=== PATIENT | female | born 1955 | race Caucasian/White ===

== ENCOUNTER 2016-02-29 11:51 | Emergency (ER) | payer OTHER ==
[~2016-02-29] VITALS: Wt 113.0 kg
[~2016-02-29 11:51] MED LIST: ACET500C5 PO; BUPR300T36 PO; GABA-526 PO; HYDR-762 PO; LANT3I SC; LATA2.5D2 BOTH EYES; LEVO500T72 PO; MED4DP PO; MORP30TA89 PO; NOV SC; NOVO3I SC; SERT-165 PO; TEMA30CA PO; UDROBAC PO; ZOLP5TAB6 PO
[2016-02-29] MEDS ORDERED: HYDROCODONE/APAP (10/325) TAB PO ONE (13:00)
--- NOTE | 2016-02-29 13:41 | RADRPT ---
PROCEDURE: XR Ankle. CLINICAL INDICATION: Right foot and ankle pain, injury TECHNIQUE: 3 views of the right ankle were performed. COMPARISON: Radiographs of the right foot performed same day FINDINGS: There is diffuse soft tissue swelling of the foot and ankle, greatest dorsally. There is some age i ndeterminate bone fragmentation near the second and third tarsometatarsal joints, possibly from a pr evious avulsion injury. The Lisfranc joint is not well assessed. There is also at least moderate o steoarthrosis involving the second and third tarsometatarsal joints. There is also a chronic-appearing defect along the articular surface of the distal aspect of the fir st proximal phalanx from a remote injury. There is also evidence of remote trauma involving the ante rior calcaneus at the calcaneocuboid joint. There is a large plantar calcaneal enthesophyte. Talar dome is normal. There is mild bimalleolar soft tissue swelling. There are vascular calcifications with mild tibiotalar osteoarthrosis. IMPRESSION: 1. Age indeterminate bone fragmentation along the dorsal aspect of the mid foot near the second and third tarsometatarsal joints adjacent to moderate osteoarthrosis at the location. Please note that t he Lisfranc joint is not well assessed due to patient positioning. If clinically indicated consider CT for further evaluation. 2. Dorsal soft tissue swelling throughout the foot and bimalleolar soft tissue swelling at the ankle . 3. Large plantar calcaneal enthesophyte. 4. Evidence of remote trauma at the distal aspect of the first proximal phalanx as well as the ante rior calcaneus. RPTAT: UU .Wei Pena MD, Date Time Electronically viewed and signed by .Wei Pena MD, on 02/29/2016 13:40 .K/
--- NOTE | 2016-02-29 13:41 | RADRPT ---
PROCEDURE: XR foot CLINICAL INDICATION: Right foot and ankle pain, injury TECHNIQUE: 3 views of the right foot were performed. COMPARISON: Radiographs of the right ankle performed same day FINDINGS: There is diffuse soft tissue swelling of the foot and ankle, greatest dorsally. There is some age i ndeterminate bone fragmentation near the second and third tarsometatarsal joints, possibly from a pr evious avulsion injury. The Lisfranc joint is not well assessed. There is also at least moderate o steoarthrosis involving the second and third tarsometatarsal joints. There is also a chronic-appearing defect along the articular surface of the distal aspect of the fir st proximal phalanx from a remote injury. There is also evidence of remote trauma involving the ante rior calcaneus at the calcaneocuboid joint. There is a large plantar calcaneal enthesophyte. Talar dome is normal. There is mild bimalleolar soft tissue swelling. There are vascular calcifications with mild tibiotalar osteoarthrosis. IMPRESSION: 1. Age indeterminate bone fragmentation along the dorsal aspect of the mid foot near the second and third tarsometatarsal joints adjacent to moderate osteoarthrosis at the location. Please note that t he Lisfranc joint is not well assessed due to patient positioning. If clinically indicated consider CT for further evaluation. 2. Dorsal soft tissue swelling throughout the foot and bimalleolar soft tissue swelling at the ankle . 3. Large plantar calcaneal enthesophyte. 4. Evidence of remote trauma at the distal aspect of the first proximal phalanx as well as the ante rior calcaneus. RPTAT: UU .Wei Pena MD, Date Time Electronically viewed and signed by .Wei Pena MD, on 02/29/2016 13:41 .K/
--- NOTE | 2016-02-29 14:50 | RADRPT ---
PROCEDURE: CT of the right foot CLINICAL INDICATION: Right foot pain and swelling for 4 weeks TECHNIQUE: Axial images through the right foot without IV contrast. Coronal and sagittal reforma ts. Images were interpreted at an independent PACS workstation. CTDI 11.08 mGy DLP 17 0.24 mGy-cm One or more of the following dose reduction techniques were used: Automated exposure control Adjustment of the mA and / or kV according to patient size Use of iterative reconstruction technique. COMPARISON: Correlation with radiographs of the right foot and ankle performed same day FINDINGS: There is moderate to severe osteoarthrosis involving the navicular - medial cuneiform articulation (and axial 32) as well as moderate to severe osteoarthrosis involving the second and third tarsometa tarsal joints (axial 34). There is also an ununited fracture along the plantar aspect of the base of the second metatarsal (sagittal 134) which is age indeterminate. There is some additional age inde terminate bone fragmentation at the second tarsometatarsal joint dorsally (sagittal 120) along with slight dorsal subluxation of the base of the second metatarsal. Slight lateral subluxation of the p atient's fracture fragment the base of the second metatarsal is also seen causing slight widening of the Lisfranc interspace. There is also an age indeterminate mild bony irregularity along the anteri or margin of the medial malleolus (axial 21). Milder degenerative changes at the fourth and fifth tarsometatarsal joints are noted with small subc hondral cyst. There is evidence of remote trauma the lateral aspect of the calcaneocuboid joint (ax ial 33) as well as remote trauma at the distal aspect of the fifth proximal phalanx (axial 46). Limited soft tissue assessment demonstrates fairly significant dorsal subcutaneous soft tissue swell ing. There is also mild bimalleolar soft tissue swelling. Limited tendon assessment is grossly unr emarkable. There are vascular calcifications. There is a large plantar calcaneal enthesophyte. IMPRESSION: 1. Age indeterminate nondisplaced fracture along the plantar aspect of the base of the second metata rsal as well as dorsal bone fragmentation at the second tarsometatarsal joint. This is on a backgro und of moderate to severe osteoarthrosis with significant subchondral cystic changes suggesting poss ible superimposed crystal deposition disease. 2. Slight dorsal subluxation of the second metatarsal base as well as borderline lateral subluxatio n suggest a degeneration and / or tearing of the Lisfranc ligament at this location. 3. Age indeterminate bony irregularity along the anterior aspect of the medial malleolus, query tin y avulsion injury. 4. Evidence of remote trauma along the lateral aspect of the calcaneocuboid joint and the distal asp ect of the first proximal phalanx. 5. Significant dorsal and bimalleolar soft tissue swelling. RPTAT: UU .Wei Pena MD, MD Date Time Electronically viewed and signed by .Wei Pena MD, MD on 02/29/2016 14:49 .K/
[2016-02-29] MEDS ORDERED: HYDR-902 PO (15:00)
--- NOTE | 2016-02-29 15:12 | ERD ---
ER Documentation Chief Complaint Date/Time DATE: 02/29/16 TIME: 15:07 Chief Complaint FOOT AND ANKLE PAIN FOR A FEW MONTHS NO RECENT TRAUMA HPI This is a 60-year-old female that presents to the ER with right foot pain for the last 3 weeks. Patient does not recall any recent trauma however she has had severe right foot pain. She has been taking Ida however has not helped. Patient states she got an x-ray done and was told she had some sort of fracture however she has not seen an orthopedic doctor. Patient denies any new numbness or tingling of her feet she does have diabetic neuropathy. ROS 12 point review of systems was done, all negative except per HPI. Medications Home Meds Active Scripts Hydrocodone/Acetaminophen (Ida 10-325 Tablet) 1 Each Tablet, 1 TAB PO Q6H Y for PAIN, #20 TAB Prov:BAILEE CRUZ 02/29/16 Acetaminophen* (Tylophen*) 500 Mg Capsule, 1 CAP PO Q6H Y for PAIN AND OR ELEVATED TEMP, #20 CAP Prov:THAO STODDARD MD 11/27/15 Guaifenesin-Codeine Phosphate* (Robitussin* AC) 5 Ml Syrup, 5 ML PO Q4H Y for COUGH for 7 Days, BOT Prov:SAUMYA MYERS MD 11/13/15 Insulin Glargine* (Lantus*) 100 Unit/Ml Soln, 45 UNIT SC HS for 7 Days, BOT once finished with Medrol Dose Mati - can decrease lantus down to 40 u a day Prov:SAUMYA MYERS MD 11/13/15 Insulin Aspart* (Novolog Insulin Pen*) 100 Unit/Ml Soln, 14 UNIT SC WITH MEALS for 7 Days, BOT Prov:SAUMYA MYERS MD 11/13/15 Levofloxacin* (Levaquin*) 500 Mg Tablet, 500 MG PO DAILY for 2 Days, TAB Prov:SAUMYA MYERS MD 11/13/15 Methylprednisolone* (Medrol* DOSE PACK) 4 Mg/Dose-Pack Tab.ds.pk, 4 MG PO . DIRECTED for 7 Days, PACKET Prov:SAUMYA MYERS MD 11/13/15 Reported Medications Sertraline Hcl* (Sertraline Hcl*) 100 Mg Tablet, 150 MG PO DAILY for 30 Days, # 45 TAB 11/06/15 Zolpidem Tartrate* (Zolpidem Tartrate*) 5 Mg Tablet, 5 MG PO QHS Y for INSOMNIA , #30 TAB 11/06/15 Latanoprost (Latanoprost) 2.5 Ml Drops, 1 DROP BOTH EYES HS 12/02/14 Insulin Aspart* (Novolog Insulin Vial*) 100 U/Ml Vial, 0 SC SLIDING SCALE ACHS, VIAL 08/23/14 Morphine Sulfate* (Ms Contin*) 30 Mg Tablet.sa, 30 MG PO BID Y for PAIN, TAB.SA 08/23/14 Gabapentin* (Gabapentin*) 600 Mg Tablet, 1200 MG PO TID, TAB 08/23/14 Bupropion Hcl* (Bupropion XL*) 300 Mg Tab.sr.24h, 300 MG PO DAILY, TAB.SA 11/20/13 Temazepam* (Temazepam*) 30 Mg Capsule, 30 MG PO HS Y for INSOMNIA, CAP 11/20/13 Hydrocodone Bit-Acetaminophen* (Ida*) 10-325 Mg Tablet, 1 TAB PO TID Y for PAIN, TAB 11/20/13 Allergies Allergies: Coded Allergies: metformin (Unverified Allergy, Unknown, 11/06/15) shellfish derived (Verified Allergy, Unknown, 11/06/15) azithromycin (Verified Adverse Reaction, Intermediate, 11/06/15) itching all over body with mild redness oxycodone (Verified Adverse Reaction, Intermediate, NAUSEA, 11/11/15) Uncoded Allergies: SOMOPHALLYN (Allergy, Unknown, 11/20/13) PMhx/Soc History of Surgery: Yes (righ knee surgery ) Anesthesia Reaction: No Hx Neurological Disorder: No Hx Respiratory Disorders: No Hx Cardiac Disorders: No Hx Psychiatric Problems: No Hx Miscellaneous Medical Probl: No Hx Alcohol Use: No Hx Substance Use: No Hx Tobacco Use: Yes Smoking Status: Former smoker Physical Exam Vitals Vital Signs Date Time Temp Pulse Resp B/P Pulse Ox O2 Delivery O2 Flow Rate FiO2 02/29/16 12:11 97.8 98 20 159/89 98 Physical Exam GENERAL: The patient is well developed and appropriate for usual state of health , in no apparent distress. HEENT: Atraumatic. CHEST: Clear to auscultation bilaterally. There are no rales, wheezes or rhonchi. HEART: Regular rate and rhythm. No murmurs, clicks, rubs or gallops. EXTREMITIES: Equal pedal pulses bilaterally. There is no peripheral clubbing, cyanosis or edema. No focal swelling or erythema.right foot is ttp at the dorsal 2nd and 3rd metarsal. NEURO: Alert and oriented. Results 24 hrs Current Medications Medications (Trade) Dose Ordered Sig/Elva Route PRN Reason Start Time Stop Time Status Last Admin Dose Admin Acetaminophen/ Hydrocodone Bitart (Ida (10)) 1 tab ONCE ONCE PO 02/29/16 13:00 02/29/16 13:01 DC 02/29/16 13:06 Procedures/MDM This is a 60-year-old female presents to the ER with right foot pain. Patient does appear to have a fracture of the second metatarsal and a possible lis franc injury. Patient was put in an ortho boot and was instructed to NOT BEAR ANY WEIGHT on her foot. She was also given crutches. Patient was n/v intact before and after splint application. Patient URGENTLY needs to see an orthopedic shoe fitter. I extensively urged patient to see orthopedic doctor. Patient needs to return to ER sooner if symptoms worsen. Plan was discussed with the patient. she understands and agrees with plan. Departure Diagnosis: Primary Impression: Injury of foot Condition: Stable Patient Instructions: Fracture, Foot Referrals: KIRAN PERLA (PCP) [facility] Hours: Mon-Mon 9:00 AM - 5:00 PM Additional Instructions: SPECIALIST: YOU HAVE A MEDICAL CONDITION WHICH REQUIRES YOU TO SEE A SPECIALIST WITHIN THE NEXT 1-2 DAYS. PLEASE FOLLOW UP WITH YOUR PRIMARY PHYSICIAN FOR REFFERAL.IF YOU DO NOT HAVE A PRIMARY CARE PHYSICIAN AND/OR YOU CAN NOT AFFORD TO SEE A PHYSICIAN THE FOLLOWING RESOURCES HAVE BEEN SUPPLIED TO YOU. IT IS YOUR RESPONSIBILITY TO BE SEEN BY THE SPECIALIST ORTHOPEDIC DOCTOR! BAILEE CRUZ Feb 29, 2016 15:12
== END 2016-02-29 15:31 | disposition home or self-care (01) ==
LOC: FTE 11:51
DX: S99.921A Unspecified injury of right foot, initial encounter (principal); E11.9 Type 2 diabetes mellitus without complications; X58.XXXA Exposure to other specified factors, initial encounter; Y92.9 Unspecified place or not applicable; Z79.4 Long term (current) use of insulin; Z87.891 Personal history of nicotine dependence
CPT/HCPCS: 73610; 73630; 73700; Z7610